=== PATIENT | male | born 1960 | race Caucasian/White ===

== ENCOUNTER → 2017-10-14 | Day surgery (SDC) | payer OTHER ==
[~2017-10-14] MED LIST: FENTANYL CITRATE/PF 100MCG/2 ML INJ ONE; HARVONI PO; LIDOCAINE HCL 2% LOCAL INJ 5 ML SDV VIAL INJ ONE; MIDAZOLAM HCL 2 MG/2 ML VIAL ONE; PROPOFOL IV EMULSION 10 MG/ML 50 ML VIAL ONE
== END | disposition home or self-care (01) ==
LOC: OR 07:32
PROVIDERS: ATTEND Internal Medicine Gastroenterology
DX: Z12.11 Encounter for screening for malignant neoplasm of colon (principal); D12.5 Benign neoplasm of sigmoid colon; D12.0 Benign neoplasm of cecum; K29.70 Gastritis, unspecified, without bleeding; K29.80 Duodenitis without bleeding; K74.69 Other cirrhosis of liver; K64.8 Other hemorrhoids; B18.2 Chronic viral hepatitis C; E78.2 Mixed hyperlipidemia; Z68.31 Body mass index [BMI] 31.0-31.9, adult
CPT/HCPCS: 43239; 45384; 93005; J2001; J2250

== ENCOUNTER → 2019-02-04 | Outpatient (CLI) | payer OTHER ==
[~2019-02-04] MED LIST changes: -FENTANYL CITRATE/PF 100MCG/2 ML INJ ONE; -LIDOCAINE HCL 2% LOCAL INJ 5 ML SDV VIAL INJ ONE; -MIDAZOLAM HCL 2 MG/2 ML VIAL ONE; -PROPOFOL IV EMULSION 10 MG/ML 50 ML VIAL ONE
--- NOTE | 2019-02-04 14:52 | Diagnostic Imaging Report ---
EXAMINATION: MRI of the cervical spine without contrast HISTORY: Chronic constant neck pain COMPARISON: None available TECHNIQUE: Sagittal T1, T2, STIR; axial T2, gradient echo. FINDINGS: Curvature: Normal lordosis. Vertebrae: No evidence of neoplasm, infection, or fracture. Foramen magnum: No mass, Chiari malformation, or basilar invagination. Spinal Cord: Normal size and signal intensity. Soft Tissues: Unremarkable. Degenerative changes: C1-C2 to C5-C6: Unremarkable. C6-C7: Mild symmetric disc bulge, mild left foraminal narrowing. C7-T1: Mild asymmetric to the left disc bulge. Minimal left foraminal narrowing. IMPRESSION: 1. Minimal degenerative changes at C6-C7 and C7-T1 without significant spinal canal or foraminal stenosis. No evidence of nerve root compression. 2. Normal cervical spinal cord. The findings were discussed with attending physician Dr. Alvarez on 02/04/2019 at 2:49 PM Signed by: Dr. Sabine Avelar M.D. on 02/04/2019 2:49 PM
== END ==
LOC: MRI 12:25
PROVIDERS: ATTEND Family Medicine
DX: M50.20 Other cervical disc displacement, unspecified cervical region (principal)
CPT/HCPCS: 72141

== ENCOUNTER → 2020-06-19 | Outpatient (CLI) | payer OTHER ==
[~2020-06-19] MED LIST changes: +ALPHA LIPOIC A300 MG PO; +COENZYME Q-1030 MG PO; +MILK THISTLE140 M1 PO; +MULTI-VITAMIN1 EACH PO; +SELENIUM200 MC2 PO; +VITAMIN B COMPLEX PO
== END ==
LOC: US 15:54
PROVIDERS: ATTEND Family Medicine
DX: N50.89 Other specified disorders of the male genital organs (principal); N43.42 Spermatocele of epididymis, multiple
CPT/HCPCS: 76870; 93976

== ENCOUNTER → 2022-01-08 | Day surgery (SDC) | payer OTHER ==
[2022-01-04 15:27] LABS: BASOPHILS % 0.5 % (0.0-1.0); EOSINOPHILS # (AUTO) 0.1 (0.0-0.4); EOSINOPHILS % 1.7 % (0.0-6.0); HEMATOCRIT 44.6 % (38.2-49.6); HEMOGLOBIN 15.3 g/dL (14.0-18.0); LYMPHOCYTES % 45.8 % (18.0-39.1); MEAN CORPUSCULAR HEMOGLOBIN 31.9 pg (28-32); MEAN CORPUSCULAR HGB CONC 34.3 g/dL (31-35); MEAN CORPUSCULAR VOLUME 93.1 fL (81-99); MONOCYTES # (AUTO) 0.6 (0.2-0.8); MONOCYTES % 9.1 % (4.4-11.3); NEUTROPHILS # (AUTO) 2.8 (2.1-6.9); NEUTROPHILS % 42.6 % (38.7-80.0); PLATELET COUNT 157 x10e3/uL (140-360); RED BLOOD COUNT 4.79 x10e6/uL (4.3-5.7); RED CELL DISTRIBUTION WIDTH 11.9 % (11.7-14.4)
[~2022-01-08] MED LIST changes: +ACETAMINOPHEN 1000 MG/100 ML IV ONE; +ATROPINE SULFATE 1 MG/ML VIAL ONE; +BUPIVACAINE HCL 0.5% INJ 30 ML VIAL INJ ONE; +CEFTRIAXONE 1 GM VIAL ONE; +DEXAMETHASONE SOD PHOS INJ 4 MG/ML SDV ONE; +FENTANYL CITRATE/PF 100MCG/2 ML INJ ONE; +HYDROMORPHONE 1MG/1ML INJ ONE; +LIDOCAINE HCL 2% LOCAL INJ 5 ML SDV VIAL INJ ONE; +ONDANSETRON HCL INJ 2MG/ML 2ML 2 MG/ML VIAL ONE; +POVIDONE IODINE 0.05% 0.05 % ML PO ONE; +PROPOFOL IV EMULSION 10 MG/ML 20 ML VIAL ONE; +SEVOFLURANE INHAL SOLN 250 ML PEN BTL ONE
[2022-01-08 09:55] VITALS: BP 147/86
== END | disposition home or self-care (01) ==
LOC: OR 06:05
PROVIDERS: ATTEND Orthopaedic Surgery
DX: M66.232 Spontaneous rupture of extensor tendons, left forearm (principal); M77.12 Lateral epicondylitis, left elbow; Z01.810 Encounter for preprocedural cardiovascular examination; Z01.812 Encounter for preprocedural laboratory examination; Z20.822 Contact with and (suspected) exposure to COVID-19
CPT/HCPCS: 24359; 36415; 85025; 93005; J0690; J0696; J1170; J3010; U0002; J0461; J1100; J2001; J2405